=== PATIENT | female | born 1970 | race Caucasian/White ===

== ENCOUNTER 2018-03-14 11:46 | Emergency (ER) | payer OTHER ==
[2018-03-14 12:07] VITALS: BP 142/96; PULSE 73; TEMP 98.3; BMI 31.6
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
[2018-03-14] MEDS ORDERED: IBUPROFEN 600 MG TABLET (FP) PO ONE ×2 (12:29→12:51)
== END 2018-03-14 12:58 | disposition home or self-care (01) ==
LOC: JERFT 11:46
DX: S13.4XXA Sprain of ligaments of cervical spine, initial encounter (principal); V49.49XA Driver injured in collision with other motor vehicles in traffic accident, initial encounter; Y92.488 Other paved roadways as the place of occurrence of the external cause; Y93.89 Activity, other specified; Y99.8 Other external cause status; I10 Essential (primary) hypertension; J45.20 Mild intermittent asthma, uncomplicated; E07.9 Disorder of thyroid, unspecified
CPT/HCPCS: 99281-25

== ENCOUNTER 2019-05-19 05:06 | Day surgery (SDC) | payer OTHER ==
[2019-05-18 11:45] VITALS: BMI 32.5
[2019-05-19] MEDS ORDERED: MIDAZOLAM HCL 2 MG/2 ML SINGLE DOSE VIAL ONE (14:29)
[2019-05-19] MEDS ORDERED: PROPOFOL 20 ML ONE (14:29)
--- NOTE | 2019-05-19 15:03 | HP ---
Admitting History and Physical - Admission Chief Complaint: Prolonged menses History of Present Illness: 48 yo Para 2, with h/o hypertension and thyroid disease is pre op for endometrial ablation. She's been suffering from Menorrhagia. History Source: Patient Limitations to Obtaining History: No Limitations - Past Medical History ...LMP: 05/15/19 ...: No ...Para: 2 - Past Surgical History Past Surgical History: Yes: - Smoking History Smoking history: Never smoked Have you smoked in the past 12 months: No Aproximately how many cigarettes per day: 0 - Alcohol/Substance Use Hx Alcohol Use: Yes (occ social, 1 glass) History of Substance Use: reports: None - Social History Usual Living Arrangement: Yes: With Significant Other History of Recent Travel: No Home Medications - Allergies Allergies/Adverse Reactions: Allergies Allergy/AdvReac Type Severity Reaction Status Date / Time No Known Drug Allergies Allergy Verified 05/19/19 13:37 - Home Medications Home Medications: Ambulatory Orders Methimazole 10 mg PO DAILY 12/15/14 propRANOLol HCL [Inderal] 80 mg PO DAILY 01/23/16 Family Disease History - Family Disease History Family History: Unremarkable Review of Systems - Review of Systems Constitutional: reports: No Symptoms Eyes: reports: No Symptoms HENT: reports: No Symptoms Neck: reports: No Symptoms Cardiovascular: reports: No Symptoms Respiratory: reports: No Symptoms Gastrointestinal: reports: No Symptoms Genitourinary: reports: Vaginal Bleeding Breasts: reports: No Symptoms Reported Musculoskeletal: reports: No Symptoms Integumentary: reports: No Symptoms Neurological: reports: No Symptoms Endocrine: reports: No Symptoms Psychiatric: reports: No Symptoms Pain Intensity: 0 Physical Examination Vital Signs: Vital Signs Temperature 98.3 F 05/19/19 13:35 Pulse Rate 77 05/19/19 13:35 Respiratory Rate 20 05/19/19 13:35 Blood Pressure 132/89 05/19/19 13:35 O2 Sat by Pulse Oximetry (%) 97 05/19/19 13:34 Constitutional: Yes: Well Nourished Eyes: Yes: Conjunctiva Clear HENT: Yes: Atraumatic Neck: Yes: Supple Cardiovascular: Yes: Regular Rate and Rhythm Respiratory: Yes: Regular Gastrointestinal: Yes: Normal Bowel Sounds Neurological: Yes: Alert, Oriented ...Motor Strength: WNL Psychiatric: Yes: Alert, Oriented Assessment/Plan Menorrhagia Pre op for endometrial ablation Consent signed Anesthesia to see patient
--- NOTE | 2019-05-19 16:04 | OP ---
Operative Note - Note: Operative Date: 05/19/19 Pre-Operative Diagnosis: Menorrhagia Operation: Hysteroscopic endometrial ablation Post-Operative Diagnosis: Same as Pre-op Surgeon: Gladys Thompson Anesthesia: General Estimated Blood Loss (mls): 5
[2019-05-19] MEDS ORDERED: oxyCODONE HCL 5 MG TABLET PO PRN ×2 (16:46)
[2019-05-19] MEDS ORDERED: ONDANSETRON 4 MG/2 ML VIAL IVPUSH PRN (16:46)
[2019-05-19] MEDS ORDERED: LACTATED RINGERS SOLUTION 1,000 ML IV SCH (17:00)
[2019-05-19] MEDS ORDERED: ONDANSETRON 4 MG/2 ML VIAL ONE ×2 (18:01→19:15)
[2019-05-19] MEDS ORDERED: ONDANSETRON 4 MG/2 ML VIAL IVPUSH ONE (19:14)
[2019-05-19 22:36] VITALS: TEMP 97.5
[2019-05-19 22:37] VITALS: BP 134/67; PULSE 69
--- NOTE | 2019-05-26 09:33 | OP ---
DATE OF OPERATION: 05/19/2019 PREOPERATIVE DIAGNOSIS: Menorrhagia. POSTOPERATIVE DIAGNOSIS: Menorrhagia. PROCEDURE: Hysteroscopic endometrial ablation. SURGEON: Gladys Thompson MD ANESTHESIA: General. COMPLICATIONS: None. ESTIMATED BLOOD LOSS: 5 mL. DESCRIPTION OF PROCEDURE: Patient was taken to the operating room where general anesthesia was administered. Patient was then placed in lithotomy position. She was then prepped and draped in proper sterile fashion. A weighted speculum was placed in the vagina. The anterior lip of the cervix was grasped with a single-tooth tenaculum. The ablation equipment was then activated. Then, once activated, indication for hysteroscopy was given, and after dilation of the cervix, the hysteroscope was gently introduced into the uterine cavity. Cavity was visualized. Both ostia were visualized, and several polyps were visualized. Upon completion of the diagnostic hysteroscopy, the endometrial ablation was initiated. So, this procedure continued until complete blanching of the cavity was visualized. After cool off, the instruments were removed. The patient was taken out of lithotomy position. She was taken to PACU in stable condition. GLADYS THOMPSON M.D. [id number]
== END 2019-05-19 22:35 | disposition home or self-care (01) ==
LOC: JASU-SURG 05:06 → J3W 20:57 → JASU-SURG 22:35
PROVIDERS: ATTEND Obstetrics & Gynecology
PROC: 0U5B8ZZ Destruction of Endometrium, Via Natural or Artificial Opening Endoscopic (ICD-10-PCS; principal; 2019-05-19 14:30)
DX: N92.0 Excessive and frequent menstruation with regular cycle (principal); N84.0 Polyp of corpus uteri
CPT/HCPCS: 84703; 94760

== ENCOUNTER → 2019-10-19 | Day surgery (SDC) | payer OTHER ==
--- NOTE | 2019-10-20 16:18 | PATH ---
Cytology Non-Gynecological Report Patient Name: DEYVI CALDWELL [facility]. Rec. #: [id number] /Age/Gender: 1970 (Age: 48) / F Account: [id number] Location: RADIOLOGY INTER Taken: 10/19/2019 Received: 10/19/2019 Reported: 10/20/2019 Physicians: Lainey Stewart M.D. Specimen(s) Received THYROID, RIGHT, FINE NEEDLE ASPIRATION Clinical History Right, 3.14 x 1.83 x 2.41 cm Final Diagnosis THYROID, RIGHT, FINE NEEDLE ASPIRATION: SATISFACTORY FOR EVALUATION. BETHESDA CLASS II: BENIGN. CYTOLOGIC FINDINGS ARE CONSISTENT WITH A BENIGN FOLLICULAR NODULE WITH POST-HEMORRHAGIC CHANGE. FOLLICULAR CELLS WITH FOCAL REACTIVE CHANGES IN A BACKGROUND OF COLLOID AND HEMOSIDERIN-LADEN MACROPHAGES. Electronically Signed Aminata Silva M.D. Gross Description Received are eight direct smears, four of which are air-dried and Diff-Quik stained, and four of which are alcohol fixed and Pap stained. Also received is 20 ml of bloody formalin from which one cellblock is prepared.
== END | disposition home or self-care (01) ==
LOC: JRADIR 08:59
PROVIDERS: ATTEND Internal Medicine Endocrinology, Diabetes & Metabolism
PROC: 0G9K3ZX Drainage of Thyroid Gland, Percutaneous Approach, Diagnostic (ICD-10-PCS; principal; 2019-10-19)
DX: E04.1 Nontoxic single thyroid nodule (principal)
CPT/HCPCS: 76942

== ENCOUNTER 2020-05-23 16:14 | Emergency (ER) | payer OTHER ==
[2020-05-23 16:39] VITALS: BP 150/83; PULSE 62; TEMP 97.8; BMI 33.3
--- NOTE | 2020-05-23 17:23 | PDOC ---
History of Present Illness - General Chief Complaint: Shoulder Dislocation Stated Complaint: DISLOCATE R SHOULDER Time Seen by Provider: 05/23/20 16:41 - History of Present Illness Initial Comments: 05/23/20 17:21 49-year-old female with a past medical history of hypertension and hypothyroidism presents for evaluation of right shoulder pain. She has a prior history of anterior dislocation. Today she was reaching behind her back into the backseat of her car when she dislocated in order reduced. She complains of right shoulder pain. Past History - Medical History Allergies/Adverse Reactions: Allergies Allergy/AdvReac Type Severity Reaction Status Date / Time No Known Drug Allergies Allergy Verified 05/23/20 16:34 Home Medications: Ambulatory Orders Methimazole 10 mg PO DAILY 12/15/14 propRANOLol HCL [Inderal] 80 mg PO DAILY 01/23/16 Oxycodone HCl/Acetaminophen [Percocet 5-325 mg Tablet] 1 tab PO Q4H #20 tablet MDD 20 05/19/19 Anemia: Yes Asthma: Yes ("MILD") Cancer: No Cardiac Disorders: No CVA: No COPD: No CHF: No Dementia: No Diabetes: No GI Disorders: No Disorders: No HTN: Yes Hypercholesterolemia: No Liver Disease: No Seizures: No Thyroid Disease: Yes - Reproductive History Is Patient Now?: No - Immunization History Immunization Up to Date: Yes - Psycho-Social/Smoking History Smoking History: Never smoked Have you smoked in the past 12 months: No Number of Cigarettes Smoked Daily: 0 Cigars Per Day: 0 - Substance Abuse Hx (Audit-C & DAST Scrn) How often the patient has a drink containing alcohol: Never Score: In Men: 4 or > Positive; In Women: 3 or > Positive: 0 Screen Result (Pos requires Nsg. Audit-10AR): Negative In the last yr the pt used illegal drug/Rx for NonMed reason: No Score: Yes response is considered Positive: 0 Screen Result (Positive result requires Nsg. DAST-10): Negative Review of Systems - Review of Systems Musculoskeletal: Yes: Joint Pain *Physical Exam - Vital Signs Last Vital Signs Temp Pulse Resp BP Pulse Ox 97.8 F 62 17 150/83 99 05/23/20 16:34 05/23/20 16:34 05/23/20 16:34 05/23/20 16:34 05/23/20 16:34 - Physical Exam 05/23/20 17:21 Right shoulder skin color and temperature are normal she has range of motion of the shoulder from neutral to 25 degrees of external rotation without pain. No gross sensorimotor deficits neurovascular intact she resist impingement maneuvers and rotator cuff strength testing. Her upper extremity compartments are soft and nontender. ED Treatment Course - RADIOLOGY Radiology Studies Ordered: Category Date Time Status SHOULDER-RIGHT [RAD] Stat Radiology 05/23/20 16:41 Taken Medical Decision Making - Medical Decision Making 05/23/20 17:22 X-rays of the right shoulder show no evidence of fracture dislocation or destructive process reduced right shoulder dislocation. Sling for comfort, range of motion exercises and pendulum exercises were shown. Follow-up with orthopedics. Tylenol for pain. I have reviewed the pathophysiology with the patient. They are in agreement with the treatment plan all questions were answered to their satisfaction. Understanding for follow-up without fail was also conveyed to the patient. Again they are in agreement. Discharge - Discharge Information Problems reviewed: Yes Clinical Impression/Diagnosis: Right shoulder pain Condition: Stable Disposition: HOME - Admission No - Follow up/Referral Referrals: Curtis Sierra MD [Primary Care Provider] - Jerald Santacruz DO [Staff Physician] - - Patient Discharge Instructions Additional Instructions: Sling for comfort, come out of the sling for gentle range of motion as we discussed. Tylenol for pain as directed. Without fail follow-up with orthopedic surgery in 2 to 3 days for further evaluation and treatment options and return to the emergency room should you have further issues. - Post Discharge Activity
== END 2020-05-23 17:25 | disposition home or self-care (01) ==
LOC: JERFT 16:14
DX: M25.511 Pain in right shoulder (principal)
CPT/HCPCS: 73030-TC-RT-FY; 99283-25

== ENCOUNTER → 2021-02-11 | Day surgery (SDC) | payer OTHER | END | disposition home or self-care (01) | LOC: JRADIR 10:03 | PROVIDERS: ATTEND Internal Medicine Endocrinology, Diabetes & Metabolism | PROC: 0G9K3ZX Drainage of Thyroid Gland, Percutaneous Approach, Diagnostic (ICD-10-PCS; principal; 2021-02-11) | DX: E04.1 Nontoxic single thyroid nodule (principal) | CPT/HCPCS: 10005; 76942; 88173; 88305-TC ==

== ENCOUNTER 2023-09-09 04:23 | Day surgery (SDC) | payer OTHER ==
[2023-09-07 12:52] VITALS: BMI 31.6
[2023-09-09 08:30] VITALS: TEMP 98.6
[2023-09-09 09:07] VITALS: BP 109/63; PULSE 65; RESP 13
== END 2023-09-09 09:10 | disposition home or self-care (01) ==
LOC: JASU-ENDO 04:23
PROVIDERS: ATTEND Internal Medicine Gastroenterology
PROC: 0DBM8ZX Excision of Descending Colon, Via Natural or Artificial Opening Endoscopic, Diagnostic (ICD-10-PCS; principal; 2023-09-09 08:00)
DX: Z12.11 Encounter for screening for malignant neoplasm of colon (principal); D12.4 Benign neoplasm of descending colon; K57.30 Diverticulosis of large intestine without perforation or abscess without bleeding; K64.8 Other hemorrhoids
CPT/HCPCS: 81025

== ENCOUNTER → 2024-03-17 | Day surgery (SDC) | payer OTHER | END | disposition home or self-care (01) | LOC: JRADIR 09:35 | PROVIDERS: ATTEND Internal Medicine Endocrinology, Diabetes & Metabolism | PROC: 0G9G3ZX Drainage of Left Thyroid Gland Lobe, Percutaneous Approach, Diagnostic (ICD-10-PCS; principal; 2024-03-17) | DX: E04.1 Nontoxic single thyroid nodule (principal) | CPT/HCPCS: 10005; 76942; 88173; 88305-TC ==

== ENCOUNTER 2025-06-12 23:54 | Emergency (ER) | payer OTHER ==
[2025-06-13 00:05] VITALS: BP 134/77; PULSE 75; RESP 16; TEMP 97.8; BMI 33.3
[2025-06-13] MEDS ORDERED: ACETAMINOPHEN 325 MG TABLET (FP) ONE (00:34)
[2025-06-13] MEDS ORDERED: LIDOCAINE 4% PATCH TP ONE (00:34)
[2025-06-13] MEDS ORDERED: BACLOFEN 10 MG TABLET (FP) ONE (00:34)
[2025-06-13] MEDS: LIDOCAINE 4% PATCH TP ONE (00:49)
[2025-06-13] MEDS: BACLOFEN 10 MG TABLET (FP) PO ONE (00:49)
[2025-06-13] MEDS: ACETAMINOPHEN 325 MG TABLET (FP) PO ONE (00:49)
[2025-06-13] MEDS ORDERED: LIDOCAINE PATCH REMOVAL MC SCH (22:00)
== END 2025-06-13 02:04 | disposition home or self-care (01) ==
LOC: JER 23:54
DX: M54.2 Cervicalgia (principal); M25.512 Pain in left shoulder; M79.622 Pain in left upper arm
CPT/HCPCS: 93005; 93010; 99283-25; J0475